=== PATIENT | male | born 1985 | race Two or more races ===

== ENCOUNTER 2023-01-20 13:28 | Emergency (ER) | payer BC ==
[2023-01-20 13:43] VITALS: BP 126/86; PULSE 100; RESP 18; TEMP 98.6; BMI 28.7
[2023-01-20] MEDS ORDERED: ACETAMINOPHEN 500 MG TABLET (FP) PO ONE (14:31)
[2023-01-20] MEDS ORDERED: ACETAMINOPHEN 325 MG TABLET (FP) ONE (14:42)
[2023-01-20 15:50] LABS: URINE APPEARANCE CLEAR; URINE BILIRUBIN NEGATIVE (NEGATIVE); URINE COLOR YELLOW; URINE GLUCOSE (UA) NEGATIVE (NEGATIVE); URINE KETONE NEGATIVE (NEGATIVE); URINE LEUK ESTERASE NEGATIVE (NEGATIVE); URINE NITRITE NEGATIVE (NEGATIVE); URINE PROTEIN NEGATIVE (NEGATIVE); URINE UROBILINOGEN 0.2 mg/dL (0.2-1.0)
[2023-01-20] MEDS ORDERED: KETOROLAC TROMETHAMINE 30 MG/1 ML VIAL IM ONE (17:34)
[2023-01-20] MEDS ORDERED: KETOROLAC TROMETHAMINE 30 MG/1 ML VIAL ONE (17:52)
== END 2023-01-20 17:57 | disposition home or self-care (01) ==
LOC: JER 13:28
PROC: 3E0233Z Introduction of Anti-inflammatory into Muscle, Percutaneous Approach (ICD-10-PCS; principal; 2023-01-20)
DX: R10.30 Lower abdominal pain, unspecified (principal); R11.2 Nausea with vomiting, unspecified; R35.0 Frequency of micturition; R39.15 Urgency of urination; N20.0 Calculus of kidney
CPT/HCPCS: 74176-TC; 81003; 99284-25